=== PATIENT | male | born 1985 | race Caucasian/White ===

== ENCOUNTER 2018-02-23 08:56 | Emergency (ER) | END 2018-02-23 10:00 | disposition home or self-care (01) ==

== ENCOUNTER 2018-05-13 13:30 | Emergency (ER) | END 2018-05-14 10:05 | disposition short-term general hospital (02) ==

== ENCOUNTER 2018-12-16 22:27 | Emergency (ER) | payer OTHER ==
[~2018-12-16] VITALS: Ht 167.6 cm; Wt 90.0 kg
[2018-12-16 22:42] VITALS: Ht 167.6 cm; Wt 90.0 kg
[2018-12-17] MEDS ORDERED: LORAZEPAM 0.5 MG TAB PO ONE (02:30)
--- NOTE | 2018-12-17 03:43 | ERD ---
ER Documentation Chief Complaint Chief Complaint bib ra 881/ been feeling anxious/sob x 1 day. lungs clear. no sob in intake ROS All systems reviewed and are negative except as per history of present illness. Allergies Allergies: Coded Allergies: No Known Allergy (Unverified , 05/13/18) PMhx/Soc Medical and Surgical Hx: pt denies Medical Hx, pt denies Surgical Hx History of Surgery: No Anesthesia Reaction: No Hx Neurological Disorder: No Hx Respiratory Disorders: No Hx Cardiac Disorders: No Hx Psychiatric Problems: No Hx Miscellaneous Medical Probl: No Hx Alcohol Use: No Hx Substance Use: Yes (METH 12/16/18) Hx Tobacco Use: No Smoking Status: Never smoker Physical Exam Vitals Vital Signs Date Temp Pulse Resp B/P (MAP) Pulse Ox O2 O2 Flow FiO2 Time Delivery Rate 12/16/18 99.1 89 18 154/86 99 22:42 (108) Physical Exam Const: No acute distress Head: Atraumatic Eyes: Normal Conjunctiva ENT: Normal External Ears, Nose and Mouth. Neck: Full range of motion. No meningismus. Resp: Clear to auscultation bilaterally Cardio: Regular rate and rhythm, no murmurs Abd: Soft, non tender, non distended. Normal bowel sounds Skin: No petechiae or rashes Back: No midline or flank tenderness Ext: No cyanosis, or edema Neur: Awake and alert Psych: Normal Mood and Affect Results 24 hrs Current Medications Medications Dose Sig/Julius Start Time Status Last (Trade) Ordered Route PRN Stop Time Admin Dose Reason Admin Lorazepam 0.5 mg ONCE ONCE 12/17/18 DC 12/17/18 (Ativan) PO 02:30 02:33 12/17/18 02:31 Departure Diagnosis: Primary Impression: Shortness of breath Additional Impression: Methamphetamine abuse Condition: Fair Patient Instructions: Coping with Shortness of Breath: Controlling Stress, Understanding Methamphetamine Abuse and Addiction Referrals: COMM[facility]ITY CL[facility] YOU HAVE RECEIVED A MEDICAL SCREENING EXAM AND THE RESULTS INDICATE THAT YOU DO NOT HAVE A CONDITION THAT REQUIRES URGENT TREATMENT IN THE EMERGENCY DEPARTMENT. FURTHER EVALUATION AND TREATMENT OF YOUR CONDITION CAN WAIT UNTIL YOU ARE SEEN IN YOUR DOCTORS OFFICE WITHIN THE NEXT 1-2 DAYS. IT IS YOUR RESPONSIBILITY TO MAKE AN APPOINTMENT FOR FOLOW-UP CARE. IF YOU HAVE A PRIMARY DOCTOR --you should call your primary doctor and schedule an appointment IF YOU DO NOT HAVE A PRIMARY DOCTOR YOU CAN CALL OUR PHYSICIAN REFERRAL HOTLINE AT IF YOU CAN NOT AFFORD TO SEE A PHYSICIAN YOU CAN CHOSE FROM THE FOLLOWING [facility] [address] [facility] [address] [facility] [address] [facility] [address] [facility] [place] [address] [facility]. [facility]. [address] Additional Instructions: Call your primary care doctor TOMORROW for an appointment during the next 1-2 days.See the doctor sooner or return here if your condition worsens before your appointment time. MARII MEZA DO Dec 17, 2018 03:43
[2018-12-17 03:54] VITALS: BP 133/77; PULSE 86; RESP 18
== END 2018-12-17 03:55 | disposition home or self-care (01) ==
LOC: FTE 22:27
DX: R06.02 Shortness of breath (principal); F15.10 Other stimulant abuse, uncomplicated
CPT/HCPCS: Z7502; Z7610; 99283